=== PATIENT | female | born 1985 | race Caucasian/White ===

== ENCOUNTER 2020-10-22 01:13 | Emergency (ER) | payer SELFPAY ==
[2020-10-22] MEDS ORDERED: Ketorolac 30 MG/ML SDV IVPUSH ONE ×2 (01:28→02:31)
--- NOTE | 2020-10-22 01:28 | EDM.PDOC ---
ED HPI GENERAL MEDICAL PROBLEM - General Chief Complaint: Genitourinary Problem Stated Complaint: SIDE PAIN Time Seen by Provider: 10/22/20 01:15 Source of Information: Reports: Patient, EMS History Limitations: Reports: No Limitations - History of Present Illness INITIAL COMMENTS - FREE TEXT/NARRATIVE: 35-year-old female in from out of town presents by EMS with left flank pain for the past few hours. She has a history of nephrolithiasis and renal colic, recently was diagnosed with an 8 mm stone. No dysuria, denies fever. Nausea but no vomiting. Onset: Sudden (Pain flared up again just within the last few hours) left flank Pain Score (Numeric/FACES): 8 - Related Data Allergies Allergy/AdvReac Type Severity Reaction Status Date / Time morphine Allergy Nausea and Verified 10/22/20 01:21 Vomiting Home Meds: Home Meds NK [No Known Home Meds] 10/22/20 [History] ED ROS GENERAL - Review of Systems Review Of Systems: See Below Constitutional: Denies: Fever, Chills HEENT: Reports: No Symptoms Respiratory: Reports: No Symptoms Cardiovascular: Reports: No Symptoms GI/Abdominal: Reports: Abdominal Pain (Left side of abdomen "feels sore".), Nausea. Denies: Vomiting : Reports: Flank Pain. Denies: Dysuria, Frequency, Urgency Musculoskeletal: Reports: Back Pain (Left-sided back pain) Skin: Reports: No Symptoms Neurological: Reports: No Symptoms ED EXAM, GENERAL - Physical Exam Exam: See Below Exam Limited By: No Limitations General Appearance: Alert, Mild Distress (Looks uncomfortable) Head: Atraumatic Respiratory/Chest: No Respiratory Distress, Lungs Clear Cardiovascular: Regular Rate, Rhythm GI/Abdominal: Soft, Other (No focal guarding or rebound) Back Exam: CVA Tenderness (L) (Does react with tenderness to left CVA percussion) Neurological: Alert, Oriented Psychiatric: Anxious Course - Vital Signs Last Recorded V/S: Last Vital Signs Temp 97.9 F 10/22/20 01:24 Pulse 85 10/22/20 01:24 Resp 17 10/22/20 01:24 BP 120/50 L 10/22/20 01:24 Pulse Ox 100 10/22/20 01:24 - Orders/Labs/Meds Labs: Laboratory Tests 10/22/20 10/22/20 10/22/20 Range/Units 01:22 01:25 01:25 WBC 8.3 (4.5-11.0) K/uL RBC 4.68 (3.30-5.50) M/uL Hgb 14.2 (12.0-15.0) g/dL Hct 42.9 (36.0-48.0) % MCV 92 (80-98) fL MCH 30 (27-31) pg MCHC 33 (32-36) % Plt Count 367 (150-400) K/uL Neut % (Auto) 72 H (36-66) % Lymph % (Auto) 18 L (24-44) % [place] % (Auto) 9 H (2-6) % Eos % (Auto) 1 L (2-4) % Baso % (Auto) 1 (0-1) % Sodium (140-148) mmol/L Potassium (3.6-5.2) mmol/L Chloride (100-108) mmol/L Carbon Dioxide (21-32) mmol/L Anion Gap (5.0-14.0) mmol/L BUN (7-18) mg/dL Creatinine (0.6-1.0) mg/dL Est Cr Clr Drug Dosing mL/min Estimated GFR (MDRD) (>60) Glucose (74-106) mg/dL Calcium (8.5-10.1) mg/dL Urine Color Yellow (YELLOW) Urine Appearance Clear (CLEAR) Urine pH 6.0 (5.0-8.0) Ur Specific [place] >= 1.030 (1.008-1.030) Urine Protein 100 H (NEGATIVE) mg/dL Urine Glucose (UA) Negative (NEGATIVE) mg/dL Urine Ketones Negative (NEGATIVE) mg/dL Urine Occult Blood Moderate H (NEGATIVE) Urine Nitrite Negative (NEGATIVE) Urine Bilirubin Negative (NEGATIVE) Urine Urobilinogen 0.2 (0.2-1.0) EU/dL Ur Leukocyte Esterase Negative (NEGATIVE) Urine RBC 5-10 H (0-5) Urine WBC 0-5 (0-5) Ur Epithelial Cells Few Amorphous Sediment Not seen Urine Bacteria Few Urine Mucus Not seen Urine HCG, Qual Negative 10/22/20 Range/Units 01:25 WBC (4.5-11.0) K/uL RBC (3.30-5.50) M/uL Hgb (12.0-15.0) g/dL Hct (36.0-48.0) % MCV (80-98) fL MCH (27-31) pg MCHC (32-36) % Plt Count (150-400) K/uL Neut % (Auto) (36-66) % Lymph % (Auto) (24-44) % [place] % (Auto) (2-6) % Eos % (Auto) (2-4) % Baso % (Auto) (0-1) % Sodium 143 (140-148) mmol/L Potassium 3.7 (3.6-5.2) mmol/L Chloride 105 (100-108) mmol/L Carbon Dioxide 27 (21-32) mmol/L Anion Gap 11.1 (5.0-14.0) mmol/L BUN 11 (7-18) mg/dL Creatinine 0.9 (0.6-1.0) mg/dL Est Cr Clr Drug Dosing 69.00 mL/min Estimated GFR (MDRD) > 60 (>60) Glucose 93 (74-106) mg/dL Calcium 9.1 (8.5-10.1) mg/dL Urine Color (YELLOW) Urine Appearance (CLEAR) Urine pH (5.0-8.0) Ur Specific [place] (1.008-1.030) Urine Protein (NEGATIVE) mg/dL Urine Glucose (UA) (NEGATIVE) mg/dL Urine Ketones (NEGATIVE) mg/dL Urine Occult Blood (NEGATIVE) Urine Nitrite (NEGATIVE) Urine Bilirubin (NEGATIVE) Urine Urobilinogen (0.2-1.0) EU/dL Ur Leukocyte Esterase (NEGATIVE) Urine RBC (0-5) Urine WBC (0-5) Ur Epithelial Cells Amorphous Sediment Urine Bacteria Urine Mucus Urine HCG, Qual Meds: Medications Discontinued Medications Generic Name Dose Route Start Last Admin Trade Name Freq PRN Reason Stop Dose Admin Fentanyl 50 mcg 10/22/20 02:31 10/22/20 02:41 Sublimaze IVPUSH 10/22/20 02:32 50 mcg ONETIME ONE Administration Ketorolac Tromethamine 15 mg 10/22/20 01:28 10/22/20 01:33 Toradol IVPUSH 10/22/20 01:29 15 mg ONETIME ONE Administration Ketorolac Tromethamine Confirm 10/22/20 01:29 10/22/20 01:45 Toradol Administered 10/22/20 01:30 Not Given Dose 30 mg .ROUTE .STK-MED ONE Ketorolac Tromethamine 15 mg 10/22/20 02:31 10/22/20 02:37 Toradol IVPUSH 10/22/20 02:32 15 mg ONETIME ONE Administration Ondansetron HCl 4 mg 10/22/20 02:36 10/22/20 02:39 Zofran IVPUSH 10/22/20 02:37 4 mg ONETIME ONE Administration Ondansetron HCl Confirm 10/22/20 02:38 10/22/20 02:39 Zofran Administered 10/22/20 02:39 Not Given Dose 4 mg .ROUTE .STK-MED ONE - Re-Assessments/Exams Free Text/Narrative Re-Assessment/Exam: 10/22/20 01:31 UA was obtained, also CBC and BMP. CT the abdomen pelvis without contrast ordered. She is not , just had her period 2 days ago. 10/22/20 02:18 Patient responded well to the IV Toradol, CBC and BMP were normal. Urine had a few RBCs but no infection. CT scan confirmed a fairly large stone in the pelvis of the left kidney with some surrounding inflammation. This was discussed with the emergency department and urology in [place], admission is not needed at this time but they are to call her tomorrow with a clinic appointment to set up an outpatient procedure. She will be discharged with oral Toradol, 10 hydrocodone, and sublingual Zofran for nausea. 10/22/20 06:17 IMPRESSION: Mild left hydronephrosis produced by a 10 x 6 millimeter left UPJ calculus. CT of the abdomen shows no sign of any additional renal or ureteral calculi. Normal CT of the pelvis without contrast. Prior to discharge, patient was having increased pain so a second dose of IV toradol, zofran, and 50 mcg of fentanyl were given Departure - Departure Time of Disposition: 02:24 Disposition: Home, Self-Care 01 Clinical Impression: Renal colic on left side, Left nephrolithiasis - Discharge Information Instructions: Kidney Stones, [id number] Referrals: PCP,None [Primary Care Provider] - Forms: ED Department Discharge Care Plan Goals: Take 1 Toradol pill every 6-8 hours for the next 5 days, and use hydrocodone for extra pain control if needed. The Zofran under your tongue can help with nausea and vomiting. You should be getting a call tomorrow from the urology department to set up an appointment to discuss a procedure to remove the stone. Sepsis Event Note (ED) - Evaluation Sepsis Screening Result: No Definite Risk - Focused Exam Vital Signs: Vital Signs Temp Pulse Resp BP Pulse Ox 10/22/20 01:24 97.9 F 85 17 120/50 L 100 10/22/20 01:18 97.9 F 85 17 120/50 L 100
[2020-10-22] MEDS ORDERED: Ketorolac 30 MG/ML SDV ONE (01:29)
--- NOTE | 2020-10-22 02:28 | CRLCT ---
INDICATION: Left flank pain. History of calculus. Previously had lithotripsy and stent placement. COMPARISON: None available TECHNIQUE: CT examination of the abdomen and pelvis was performed without contrast enhancement using 2 mm thick axial sections from the lung bases through the pubic symphysis. Oral contrast was not administered. Please note that all CT scans at this facility use dose modulation, iterative reconstruction, and/or weight-based dosing when appropriate to reduce radiation dose to as low as reasonably achievable. FINDINGS: In the abdomen, the unenhanced liver, spleen, pancreas, and adrenals are normal in appearance. There is mild left hydronephrosis associated with a left UPJ calculus measuring 10 x 6 millimeters. There is mild left perinephric soft tissue stranding, representing mild pyelo interstitial backflow. There is no sign of any additional renal or ureteral calculi on either side. There is no sign of right hydronephrosis or hydroureter. The gallbladder is normal in appearance. The abdominal aorta is normal in caliber with no sign of dilatation. There is no sign of retroperitoneal mass or adenopathy. The stomach, loops of small bowel, and colon in the abdomen are normal in appearance. Background In the pelvis, the retrocecal appendix is normal in appearance with no sign of inflammatory process. The loops of small bowel and colon in the pelvis are normal in appearance. The uterus and adnexal regions are and normal in appearance. The urinary bladder is normal in appearance. There is no sign of pelvic or inguinal mass or adenopathy. There is no sign of free air or free fluid in the abdomen or pelvis. The lung bases are clear. The osseous structures are normal in appearance for the patient`s age. IMPRESSION: Mild left hydronephrosis produced by a 10 x 6 millimeter left UPJ calculus. CT of the abdomen shows no sign of any additional renal or ureteral calculi. Normal CT of the pelvis without contrast. Please note that all CT scans at this facility use dose modulation, iterative reconstruction, and/or weight-based dosing when appropriate to reduce radiation dose to as low as reasonably achievable. Dictated by Anderson Hicks MD @ Oct 22 2020 2:21AM Signed by Dr. Anderson Hicks @ Oct 22 2020 2:27AM
[2020-10-22] MEDS ORDERED: fentaNYL 100 MCG/2 ML SDV IVPUSH ONE (02:31)
[2020-10-22] MEDS ORDERED: Ondansetron 4 MG/2 ML SDV IVPUSH ONE (02:36)
[2020-10-22] MEDS ORDERED: Ondansetron 4 MG/2 ML SDV ONE (02:38)
== END 2020-10-22 06:00 | disposition home or self-care (01) ==
LOC: JP.ED 01:13
DX: N13.2 Hydronephrosis with renal and ureteral calculous obstruction (principal); Z88.5 Allergy status to narcotic agent
CPT/HCPCS: 36415; 74176; 80048; 81001; 81025; 85025; 96374; 96375; 96376; 99284; J1885; J2405; J3010

== ENCOUNTER 2020-10-22 15:10 | Emergency (ER) | payer SELFPAY ==
[2020-10-22] MEDS ORDERED: Sodium Chloride 0.9% 1,000 ML IV SCH ×2 (15:15→17:00)
--- NOTE | 2020-10-22 16:40 | EDM.PDOC ---
ED HPI GENERAL MEDICAL PROBLEM - General Chief Complaint: Genitourinary Problem Stated Complaint: CLARIBEL STONE VIA [facility] Time Seen by Provider: 10/22/20 16:34 Source of Information: Reports: Patient History Limitations: Reports: No Limitations - History of Present Illness INITIAL COMMENTS - FREE TEXT/NARRATIVE: PT ARRIVED WITH ACUTE PAIN IN THE LEFT FLANK. sHE WAS SEEN LAST NITE AND WAS FOUND TO HAVE A 10X6 STONE IN UPJ AREA. sHE HAS AN APPT TOMORROW TO SEE UROLOGY AT [facility]. sHE DID RETURN TODAY BY AMBULANCE BECAUSE OF INTOLERABLE PAIN. Onset: Other (PAIN RETURNED VERY SEVERE TODAY. ) Duration: Hour(s): Location: Reports: Abdomen Quality: Reports: Stabbing Severity: Moderate Improves with: Reports: None Worsens with: Reports: None Associated Symptoms: Reports: Nausea/Vomiting Left Flank Pain Score (Numeric/FACES): 3 - Related Data Allergies Allergy/AdvReac Type Severity Reaction Status Date / Time morphine Allergy Nausea and Verified 10/22/20 15:17 Vomiting Home Meds: Home Meds Acetaminophen/HYDROcodone [[place] 325-5 MG] 1 - 2 tab PO Q6H PRN 10/22/20 [History] Ketorolac [Toradol] 1 tab PO Q6H PRN 10/22/20 [History] Ondansetron [Zofran ODT] 4 mg PO Q8H PRN 10/22/20 [History] Past Medical History Gastrointestinal History: Reports: None Genitourinary History: Reports: Renal Calculus [employer] History: Reports: Psychiatric History: Reports: Anxiety, Depression - Infectious Disease History Infectious Disease History: Reports: Chicken Pox - Past Surgical History GI Surgical History: Reports: Hernia, Inguinal Female Surgical History: Reports: None Social & Family History - Tobacco Use Tobacco Use Status *Q: Current Every Day Tobacco User Years of Tobacco use: 10 Packs/Tins Daily: 0.5 - Caffeine Use Caffeine Use: Reports: Coffee, Energy Drinks, Soda, Tea - Recreational Drug Use Recreational Drug Use: No ED ROS GENERAL - Review of Systems Review Of Systems: See Below Constitutional: Reports: No Symptoms HEENT: Reports: No Symptoms Cardiovascular: Reports: No Symptoms Endocrine: Reports: No Symptoms GI/Abdominal: Reports: Abdominal Pain, Other (LEFT FLANKPAIN) : Reports: Flank Pain, Other (ON LEFT SIDE. ) Musculoskeletal: Reports: No Symptoms Skin: Reports: No Symptoms ED EXAM, GI/ABD - Physical Exam Exam: See Below Text/Narrative:: PT ARRIVED WITH INTOLERABLE FLANK PAIN. sHE DID RETURN BY AMBYULANCE TODAY AFTER BEING SEEN LAST NITE. Exam Limited By: No Limitations General Appearance: Alert, Anxious, Severe Distress Ears: Normal TMs Nose: Normal Inspection Throat/Mouth: Normal Inspection Head: Atraumatic Neck: Normal Inspection Respiratory/Chest: No Respiratory Distress Cardiovascular: Regular Rate, Rhythm GI/Abdominal Exam: Other (SEVERE LEFT FLANK PAIN) (Female) Exam: Deferred Rectal (Female) Exam: Deferred Back Exam: Normal Inspection Extremities: Normal Inspection Neurological: Alert, Oriented, Normal Cognition Course - Vital Signs Last Recorded V/S: Last Vital Signs Temp 36.9 C 10/22/20 15:12 Pulse 84 10/22/20 15:12 Resp 16 10/22/20 15:12 BP 91/55 L 10/22/20 15:12 Pulse Ox 98 10/22/20 15:12 - Orders/Labs/Meds Orders: Active Orders 24 hr Category Date Time Status Sodium Chloride 0.9% [Normal Saline] 1,000 ml Med 10/22/20 15:15 Active IV ASDIRECTED Medication Orders Sodium Chloride (Normal Saline) 1,000 mls @ 999 mls/hr IV ASDIRECTED ALVARO Last Admin: 10/22/20 15:29 Dose: 999 mls/hr Documented by: JEREMIAH Labs: Laboratory Tests 10/22/20 10/22/20 Range/Units 15:35 15:35 WBC 5.9 (4.5-11.0) K/uL RBC 4.27 (3.30-5.50) M/uL Hgb 13.0 (12.0-15.0) g/dL Hct 39.7 (36.0-48.0) % MCV 93 (80-98) fL MCH 30 (27-31) pg MCHC 33 (32-36) % Plt Count 312 (150-400) K/uL Neut % (Auto) 70 H (36-66) % Lymph % (Auto) 19 L (24-44) % [place] % (Auto) 9 H (2-6) % Eos % (Auto) 2 (2-4) % Baso % (Auto) 1 (0-1) % Sodium 142 (140-148) mmol/L Potassium 3.6 (3.6-5.2) mmol/L Chloride 105 (100-108) mmol/L Carbon Dioxide 27 (21-32) mmol/L Anion Gap 10.0 (5.0-14.0) mmol/L BUN 14 (7-18) mg/dL Creatinine 0.9 (0.6-1.0) mg/dL Est Cr Clr Drug Dosing 69.00 mL/min Estimated GFR (MDRD) > 60 (>60) Glucose 137 H (74-106) mg/dL Calcium 9.3 (8.5-10.1) mg/dL Total Bilirubin 0.2 (0.2-1.0) mg/dL AST 14 L (15-37) U/L ALT 18 (12-78) U/L Alkaline Phosphatase 70 (46-116) U/L Total Protein 6.4 (6.4-8.2) g/dL Albumin 3.4 (3.4-5.0) g/dL Globulin 3.0 (2.3-3.5) g/dL Albumin/Globulin Ratio 1.1 L (1.2-2.2) Meds: Medications Generic Name Dose Route Start Last Admin Trade Name Freq PRN Reason Stop Dose Admin Sodium Chloride 1,000 mls @ 999 mls/hr 10/22/20 15:15 10/22/20 15:29 Normal Saline IV 999 mls/hr ASDIRECTED ALVARO Administration - Re-Assessments/Exams Free Text/Narrative Re-Assessment/Exam: 10/22/20 16:49 PT WAS FOUND TO HAVE A 10X6 MM STONE ON CAT SCAN LAST NITE, sHE HAS HAD INTRACTABLE LEFT FLANK PAIN ALL DAY. sHE RECEIVED IV TORDOL AND IS DOING MUCH BETTER AT THIS TIME. [facility] WAS CONTACTED AND WILL ACCEPT HER FOR PAIN CONTROL AND WILL DEAL WITH STONE WHICH DOES NOT SEEM PASSABLE. Departure - Departure Time of Disposition: 16:51 Disposition: DC/Tfer to Acute Hospital 02 Condition: Fair Clinical Impression: Ureteral calculus, left - Discharge Information Referrals: PCP,None [Primary Care Provider] - Care Plan Goals: TRANSFER TO [facility] Sepsis Event Note (ED) - Evaluation Sepsis Screening Result: No Definite Risk - Focused Exam Vital Signs: Vital Signs Temp Pulse Resp BP Pulse Ox 10/22/20 15:12 36.9 C 84 16 91/55 L 98 - My Orders Last 24 Hours: My Active Orders 10/22/20 15:15 Sodium Chloride 0.9% [Normal Saline] 1,000 ml IV ASDIRECTED - Assessment/Plan Last 24 Hours: My Active Orders 10/22/20 15:15 Sodium Chloride 0.9% [Normal Saline] 1,000 ml IV ASDIRECTED
[2020-10-22] MEDS ORDERED: HYDROmorphone 0.5 MG/0.5 ML Syringe IVPUSH ONE (17:13)
== END 2020-10-22 17:29 ==
LOC: JP.ED 15:10
DX: N20.1 Calculus of ureter (principal); Z72.0 Tobacco use; Z88.5 Allergy status to narcotic agent
CPT/HCPCS: 36415; 80053; 85025; 96374; 99285; J1170; J7030

== ENCOUNTER 2020-10-25 11:45 | Emergency (ER) | payer SELFPAY ==
[2020-10-25] MEDS ORDERED: HYDROmorphone 0.5 MG/0.5 ML Syringe IVPUSH ONE (11:58)
[2020-10-25] MEDS ORDERED: Ketorolac 30 MG/ML SDV IVPUSH ONE (11:59)
[2020-10-25] MEDS ORDERED: Prochlorperazine 10 MG/2 ML SDV IVPUSH ONE (11:59)
--- NOTE | 2020-10-25 12:37 | EDM.PDOC ---
ED HPI GENERAL MEDICAL PROBLEM - General Chief Complaint: Abdominal Pain Stated Complaint: ABD AND BACK PAIN Time Seen by Provider: 10/25/20 11:55 Source of Information: Reports: Patient History Limitations: Reports: No Limitations - History of Present Illness INITIAL COMMENTS - FREE TEXT/NARRATIVE: 35-year-old female was discharged from [place] yesterday after lithotripsy and st one removal of a large stone from the left renal pelvis. Last night she had pain all night and was unable to sleep, this morning it even seemed worse. She was asked to try to leave the stent in until tomorrow but she thought if she pulled the stent today it would make it better but that made it even worse. She has taken all her medications including Zofran, Toradol, [place], Tylenol, nothing is helping. She has been vomiting all morning and having intense left flank and left abdominal pain. No fevers. She is urinating. Location: Reports: Abdomen (Left side), Back Associated Symptoms: Reports: Malaise, Nausea/Vomiting Pelvic Pain Score (Numeric/FACES): 10 - Related Data Allergies Allergy/AdvReac Type Severity Reaction Status Date / Time morphine Allergy Nausea and Verified 10/25/20 11:57 Vomiting Home Meds: Home Meds Acetaminophen/HYDROcodone [[place] 325-5 MG] 1 - 2 tab PO Q6H PRN 10/22/20 [History] Ketorolac [Toradol] 1 tab PO Q6H PRN 10/22/20 [History] Ondansetron [Zofran ODT] 4 mg PO Q8H PRN 10/22/20 [History] Oxybutynin Chloride [Oxybutynin Chloride ER] 15 mg PO DAILY 10/25/20 [History] Sulfamethoxazole/Trimethoprim [Sulfamethoxazole-Tmp Ds Tablet] 1 each PO BID 10/25/20 [History] Tamsulosin [Tamsulosin 24 Hr] 0.4 mg PO DAILY 10/25/20 [History] Past Medical History Gastrointestinal History: Reports: None Genitourinary History: Reports: Renal Calculus [employer] History: Reports: Psychiatric History: Reports: Anxiety, Depression - Infectious Disease History Infectious Disease History: Reports: Chicken Pox - Past Surgical History GI Surgical History: Reports: Hernia, Inguinal Female Surgical History: Reports: None Social & Family History - Tobacco Use Tobacco Use Status *Q: Current Every Day Tobacco User Years of Tobacco use: 10 Packs/Tins Daily: 0.5 - Caffeine Use Caffeine Use: Reports: Coffee, Energy Drinks, Soda, Tea - Recreational Drug Use Recreational Drug Use: No ED ROS GENERAL - Review of Systems Review Of Systems: See Below Constitutional: Reports: Malaise. Denies: Fever, Chills HEENT: Reports: No Symptoms Respiratory: Denies: Shortness of Breath Cardiovascular: Denies: Chest Pain GI/Abdominal: Reports: Abdominal Pain, Nausea, Vomiting : Reports: Urgency Skin: Reports: No Symptoms Neurological: Reports: No Symptoms ED EXAM, GENERAL - Physical Exam Exam: See Below Exam Limited By: No Limitations General Appearance: Alert, Moderate Distress Respiratory/Chest: No Respiratory Distress, Lungs Clear Cardiovascular: Regular Rate, Rhythm. No: Tachycardia GI/Abdominal: Soft, Tender (Fairly tender to palpation on the anterior left abdomen) Extremities: Normal Inspection Neurological: Alert, Oriented Psychiatric: Anxious Skin Exam: Warm, Dry Course - Vital Signs Last Recorded V/S: Last Vital Signs Temp 96.3 F L 10/25/20 11:51 Pulse 78 10/25/20 13:47 Resp 16 10/25/20 13:47 BP 101/78 10/25/20 13:47 Pulse Ox 99 10/25/20 13:47 - Orders/Labs/Meds Labs: Laboratory Tests 10/25/20 10/25/20 Range/Units 12:10 12:10 WBC 7.3 (4.5-11.0) K/uL RBC 3.82 (3.30-5.50) M/uL Hgb 11.8 L (12.0-15.0) g/dL Hct 35.6 L (36.0-48.0) % MCV 93 (80-98) fL MCH 31 (27-31) pg MCHC 33 (32-36) % Plt Count 259 (150-400) K/uL Neut % (Auto) 68 H (36-66) % Lymph % (Auto) 20 L (24-44) % [place] % (Auto) 10 H (2-6) % Eos % (Auto) 2 (2-4) % Baso % (Auto) 0 (0-1) % Sodium 142 (140-148) mmol/L Potassium 3.5 L (3.6-5.2) mmol/L Chloride 106 (100-108) mmol/L Carbon Dioxide 25 (21-32) mmol/L Anion Gap 14.5 H (5.0-14.0) mmol/L BUN 13 (7-18) mg/dL Creatinine 1.0 (0.6-1.0) mg/dL Est Cr Clr Drug Dosing 62.10 mL/min Estimated GFR (MDRD) > 60 (>60) Glucose 89 (74-106) mg/dL Calcium 8.5 (8.5-10.1) mg/dL Meds: Medications Discontinued Medications Generic Name Dose Route Start Last Admin Trade Name Freq PRN Reason Stop Dose Admin Hydromorphone HCl 0.5 mg 10/25/20 11:58 10/25/20 12:17 Hydromorphone 0.5 Mg/0.5 Ml Syringe IVPUSH 10/25/20 11:59 0.5 mg ONETIME ONE Administration Ketorolac Tromethamine 30 mg 10/25/20 11:59 10/25/20 12:15 Ketorolac 30 Mg/Ml Sdv IVPUSH 10/25/20 12:00 30 mg ONETIME ONE Administration Prochlorperazine Edisylate 5 mg 10/25/20 11:59 10/25/20 12:09 Prochlorperazine 10 Mg/2 Ml Sdv IVPUSH 10/25/20 12:00 5 mg ONETIME ONE Administration - Re-Assessments/Exams Free Text/Narrative Re-Assessment/Exam: 10/25/20 12:36 An IV was started, patient will be hydrated and was given 30 mg of IV Toradol, 5 mg of IV Compazine and a CBC and BMP were obtained. 10/25/20 12:37 She was also given 0.5 mg of IV Dilaudid. 10/25/20 13:33 1 hour after receiving the medication she felt much better, pain was literally gone. She slept soundly for 45 minutes. We will change her pain medication from hydrocodone to Dilaudid which she seems to tolerate better. She was given a prescription for 12 2 milligram doses to take every 6 hours. She can return if symptoms worsen despite treatment. Departure - Departure Time of Disposition: 14:04 Disposition: Home, Self-Care 01 Clinical Impression: Renal colic on left side - Discharge Information Instructions: Renal Colic, [id number] Referrals: PCP,None [Primary Care Provider] - Forms: ED Department Discharge Care Plan Goals: Continue your medications as discussed, stay hydrated, and return if symptoms recur and are persistent and resistant to medications. Sepsis Event Note (ED) - Evaluation Sepsis Screening Result: No Definite Risk - Focused Exam Vital Signs: Vital Signs Temp Pulse Resp BP Pulse Ox 10/25/20 13:47 78 16 101/78 99 10/25/20 11:51 96.3 F L 90 18 96/80 98
== END 2020-10-25 14:05 | disposition home or self-care (01) ==
LOC: JP.ED 11:45
DX: N23 Unspecified renal colic (principal); Z88.5 Allergy status to narcotic agent; Z72.0 Tobacco use; Z79.899 Other long term (current) drug therapy
CPT/HCPCS: 36415; 80048; 85025; 96374; 96375; 99283; 99284-25; J0780; J1170; J1885